=== PATIENT | female | born 1960 | race Caucasian/White ===

== ENCOUNTER → 2016-08-24 | Outpatient (CLI) | payer MEDICARE, OTHER ==
[~2016-08-24] MED LIST: ADVA250A INH; ALBUAER3 INH; ALPR.5 PO; AMBI10TA PO; CYMB60CA PO; HYDR-3366 PO; SIMV20TA PO
[2016-08-24 14:21] LABS: BLOOD GAS BASE EXCESS -0.6 mmol/L (-2-2); BLOOD GAS CARBOXYHEMOGLOBIN 1.3 % (0-4); BLOOD GAS HCO3 23 mmol/L (22-26); BLOOD GAS O2 HGB SATURATION 95 % (90-100); BLOOD GAS PCO2 38 mmHg (38-42); BLOOD GAS PO2 95 mmHg (61-120); BLOOD GAS TOTAL HGB 13.3 G/DL (12.0-16.0); TEMP CORR TO 98.6
[2016-08-24 14:22] LABS: CRITICAL VALUE NO; DRAW SITE RT RADIAL; FIO2 21 %; NUMBER OF ARTERIAL PUNCTURES 1; STAT NO; ULNAR PULSE PRESENT
--- NOTE | 2016-08-25 09:19 | RSPPFT ---
DATE OF PROCEDURE: 08/24/16 COMMENTS: Spirometry shows FVC of 3.0 at 84% of predicted, FEV1 of 2.4 at 90%, FEV1/FVC ratio is normal. Flow is normal at FEF 25 and FEF 25-75. Flow is decreased at FEF 50 and FEF 75. There is no response after bronchodilator treatment. Lung volumes show residual volume is normal. TLC is normal. Diffusion capacity is normal. Flow volume loop indicates a normal pattern. Room air arterial blood gases show pH of 7.41, PCO2 of 38, PO2 of 95, BiCarb of 23, O2 Saturation at 95%. IMPRESSION: 1. Normal spirometry. 2. Mild small airways obstructive lung disease. 3. No response after bronchodilator treatment. 4. Lung volumes are normal. 5. Normal diffusion. 6. Blood gases show normal oxygenation.
== END ==
LOC: HRSP 13:06
PROVIDERS: ATTEND Specialist
DX: J45.20 Mild intermittent asthma, uncomplicated (principal)
CPT/HCPCS: 36600; 82805; 94060; 94726; 94729